=== PATIENT | female | born 1950 | race Caucasian/White ===

== ENCOUNTER 2016-12-26 08:53 | Outpatient (CLI) | payer MEDICARE, OTHER ==
[2016-12-26 19:51] LABS: BASOPHILS % (AUTO) 1.1 %; EOSINOPHILS # (AUTO) 0.2 10^3/uL (0.0-0.7); EOSINOPHILS % (AUTO) 4.7 %; HCT - HEMATOCRIT 39.7 % (37.0-47.0); HGB - HEMOGLOBIN 13.3 g/dL (12.0-16.0); LYMPHOCYTES # (AUTO) 1.6 10^3/uL (1.5-3.5); LYMPHOCYTES % (AUTO) 34.9 %; MEAN CORPUSCULAR HEMOGLOBIN 30.6 pg (27.0-31.0); MEAN CORPUSCULAR HGB CONC 33.5 g/dL (32.0-36.0); MEAN CORPUSCULAR VOLUME 91.2 fL (81.0-99.0); MEAN PLATELET VOLUME 8.9 fL (7.9-10.8); MONOCYTES # (AUTO) 0.4 10^3/uL (0.0-1.0); MONOCYTES % (AUTO) 8.2 %; NEUTROPHILS # (AUTO) 2.3 10^3/uL (1.5-6.6); NEUTROPHILS % (AUTO) 51.1 %; NUCLEATED RED BLOOD CELLS AUTO 0.3 /100WBC; RED BLOOD COUNT 4.35 10^6/uL (4.20-5.40); RED CELL DISTRIBUTION WIDTH 12.8 % (12.0-15.0); UNCORRECTED WHITE BLOOD COUNT 4.6 x10^3/uL; WHITE BLOOD COUNT 4.6 x10^3/uL (4.8-10.8)
[2016-12-26 19:58] LABS: ALBUMIN/GLOBULIN RATIO 1.3 (1.0-2.2); BILIRUBIN,TOTAL 0.4 mg/dL (0.2-1.0); CALCIUM 9.5 mg/dL (8.5-10.3); CREATININE 0.6 mg/dL (0.4-1.0); POTASSIUM 3.6 mmol/L (3.5-5.0); TOTAL PROTEIN 7.5 g/dL (6.7-8.2)
== END 2016-12-26 08:54 | disposition home or self-care (01) ==
LOC: LAB.R 08:53
PROVIDERS: ATTEND Physician Assistant Medical
DX: M81.0 Age-related osteoporosis without current pathological fracture (principal); I10 Essential (primary) hypertension; Z79.899 Other long term (current) drug therapy
CPT/HCPCS: 80053; 82306; 84443; 85025

== ENCOUNTER 2017-01-20 13:26 | Outpatient (CLI) | payer MEDICARE, OTHER ==
--- NOTE | 2017-01-21 18:29 | Mammography Report ---
DIGITAL SCREENING MAMMOGRAM: 01/20/2017 CLINICAL INDICATION: A 66-year-old for screening. COMPARISON: 10/2014, 10/2012, 07/2010. TECHNIQUE: Routine CC and MLO projections were obtained of the breasts. The breasts demonstrate scattered fibroglandular densities bilaterally. Coarse and punctate, typical ly benign calcifications are present. Intramammary lymph nodes are stable. No suspicious masses, cl ustered microcalcifications, or regions of architectural distortion are identified. IMPRESSION: BENIGN FINDINGS. RECOMMENDATION: ROUTINE ANNUAL SCREENING UNLESS OTHERWISE CLINICALLY INDICATED. BIRADS CATEGORY: 2, BENIGN FINDINGS. STANDARD QUALIFYING STATEMENTS 1. This examination was reviewed with the aid of Computed-Aided Detection (CAD). 2. A negative or benign imaging report should not delay biopsy if clinically suspicious findings are present. Consider surgical consultation if warranted. More than 5% of cancers are not identified b y imaging. 3. Dense breasts may obscure an underlying neoplasm. JOB #: [id number] EXT JOB #:[id number]
== END 2017-01-20 13:27 | disposition home or self-care (01) ==
LOC: DI 13:26
PROVIDERS: ATTEND Physician Assistant Medical
DX: Z12.31 Encounter for screening mammogram for malignant neoplasm of breast (principal)
CPT/HCPCS: 77067

== ENCOUNTER 2018-01-05 08:10 | Outpatient (CLI) | payer MEDICARE, OTHER ==
[2018-01-05 14:03] LABS: BASOPHILS # (AUTO) 0.1 10^3/uL (0.0-0.1); BASOPHILS % (AUTO) 1.3 %; EOSINOPHILS # (AUTO) 0.3 10^3/uL (0.0-0.7); HGB - HEMOGLOBIN 13.5 g/dL (12.0-16.0); LYMPHOCYTES # (AUTO) 1.5 10^3/uL (1.5-3.5); LYMPHOCYTES % (AUTO) 35.3 %; MEAN CORPUSCULAR HEMOGLOBIN 30.6 pg (27.0-31.0); MEAN CORPUSCULAR HGB CONC 34.4 g/dL (32.0-36.0); MEAN PLATELET VOLUME 8.9 fL (7.9-10.8); MONOCYTES # (AUTO) 0.4 10^3/uL (0.0-1.0); MONOCYTES % (AUTO) 8.4 %; NEUTROPHILS # (AUTO) 2.1 10^3/uL (1.5-6.6); PLT - PLATELET COUNT 237 10^3/uL (130-450); WHITE BLOOD COUNT 4.3 x10^3/uL (4.8-10.8)
[2018-01-05 14:13] LABS: ALBUMIN 4.1 g/dL (3.2-5.5); ALBUMIN/GLOBULIN RATIO 1.2 (1.0-2.2); BILIRUBIN,TOTAL 0.7 mg/dL (0.2-1.0); CALCIUM 9.4 mg/dL (8.5-10.3); CREATININE 0.5 mg/dL (0.4-1.0); TOTAL PROTEIN 7.5 g/dL (6.7-8.2)
== END 2018-01-05 08:11 | disposition home or self-care (01) ==
LOC: LAB.R 08:10
PROVIDERS: ATTEND Physician Assistant Medical
DX: M81.0 Age-related osteoporosis without current pathological fracture (principal); I10 Essential (primary) hypertension; Z79.899 Other long term (current) drug therapy
CPT/HCPCS: 80053; 82306; 84443; 85025

== ENCOUNTER 2018-01-26 08:22 | Outpatient (CLI) | payer MEDICARE, OTHER ==
--- NOTE | 2018-01-26 09:59 | DEXA Report ---
Reason: OSTEOPOROSIS, CURRENT MED USE Procedure Date: 01/26/2018 Accession Number: [id number] / [id number] Procedure: DEX - Dexa Spine and/or Hip CPT Code: FULL RESULT: EXAM: Dexa Spine and/or Hip DATE: 01/26/2018 8:43 AM CLINICAL HISTORY: OSTEOPOROSIS, CURRENT MED USE TECHNIQUE: Dual energy x-ray absorptiometry (DXA) was performed on a [employer] System. Regions measured are the AP Spine, femoral neck, and if needed forearm. COMPARISON: 01/04/2016 In accordance with the International Society for Clinical Densitometry (ISCD) guidelines, data from previous exams may be reanalyzed using current recommendations and techniques. This is done to allow a more accurate basis for comparison with the current study. FINDINGS: The data for the lumbar spine is as follows: BMD (g/cm/cm) T-SCORE Z-SCORE REGION L1 0.904 -1.9 -0.1 L2 1.030 -1.4 0.3 L3 1.034 -1.4 0.4 L4 0.997 -1.7 0.1 TOTAL 0.992 -1.6 0.2 NOTE: All evaluable vertebrae are used for classification The data for the hip is as follows: BMD (g/cm/cm) T-SCORE Z-SCORE REGION Neck 0.675 -2.6 -0.9 TOTAL 0.703 -2.4 -0.9 NOTE: The femoral neck or total proximal femur, whichever is lowest, is used for classification. DXA RESULTS SUMMARY: Spine SCAN DATE AGE BMD CHANGE VS CHANGE VS PREVIOUS PREVIOUS % 01[age]26/2018 [age] 0[age]992 0.043* 4.5* 01/04/2016 [age] 0[age]949 * Denotes significant change at the 95% confidence level. Denotes dissimilar scan types or analysis methods. DXA RESULTS SUMMARY: Hip SCAN DATE AGE BMD CHANGE VS CHANGE VS PREVIOUS PREVIOUS % 01[age]26/2018 67.9 0.703 -0.023 -3.2 01/04/2016 [age] 0.726 * Denotes significant change at the 95% confidence level. Denotes dissimilar scan types or analysis methods. IMPRESSION: THE WHO CLASSIFICATION BASED ON THE INTERNATIONAL REFERENCE STANDARD IS OSTEOPOROSIS. THE FRACTURE RISK IS HIGH. RECOMMENDATION: Patients with diagnosis of osteoporosis or osteopenia should have regular bone mineral density assessment. For those eligible for Medicare, routine testing is allowed once every 2 years. Testing frequency can be increased for patients who have rapidly progressing disease or for those who are receiving medical therapy to restore bone mass. COMMENT: World Health Organization (WHO) definitions for osteoporosis and osteopenia: NORMAL BMD: T-score at -1.0 or higher, fracture risk is low OSTEOPENIA BMD: T-score between -1.0 and -2.5, fracture risk is increased. OSTEOPOROSIS BMD: T-score at -2.5 or lower, fracture risk is high. National Osteoporosis Foundation recommends: 1. Obtain adequate dietary calcium (at least 1200 mg per day) and vitamin D (400-800 international units per day). 2. Participate, as appropriate, in regular weightbearing and muscle-strengthening exercise. 3. Avoid tobacco use and reduce alcohol and caffeine intake. 4. For more detailed information see the website at www.NOF.org.
== END 2018-01-26 08:23 | disposition home or self-care (01) ==
LOC: DI 08:22
PROVIDERS: ATTEND Physician Assistant Medical
DX: M81.0 Age-related osteoporosis without current pathological fracture (principal); Z79.899 Other long term (current) drug therapy
CPT/HCPCS: 77080

== ENCOUNTER 2018-12-09 09:49 | Outpatient (CLI) | payer MEDICARE, OTHER ==
[2018-12-09 10:10] LABS: BASOPHILS % (AUTO) 0.9 %; EOSINOPHILS # (AUTO) 0.2 10^3/uL (0.0-0.7); EOSINOPHILS % (AUTO) 3.6 %; HGB - HEMOGLOBIN 12.6 g/dL (12.0-16.0); LYMPHOCYTES # (AUTO) 1.8 10^3/uL (1.5-3.5); LYMPHOCYTES % (AUTO) 38.8 %; MEAN CORPUSCULAR HEMOGLOBIN 30.6 pg (27.0-31.0); MEAN CORPUSCULAR HGB CONC 33.3 g/dL (32.0-36.0); MEAN CORPUSCULAR VOLUME 91.7 fL (81.0-99.0); MEAN PLATELET VOLUME 9.9 fL (7.9-10.8); MONOCYTES # (AUTO) 0.5 10^3/uL (0.0-1.0); MONOCYTES % (AUTO) 9.8 %; NEUTROPHILS # (AUTO) 2.2 10^3/uL (1.5-6.6); NEUTROPHILS % (AUTO) 46.7 %; PLT - PLATELET COUNT 218 10^3/uL (130-450); RED BLOOD COUNT 4.12 10^6/uL (4.20-5.40); RED CELL DISTRIBUTION WIDTH 12.9 % (12.0-15.0); WHITE BLOOD COUNT 4.7 x10^3/uL (4.8-10.8)
[2018-12-09 10:42] LABS: ALBUMIN 4.1 g/dL (3.2-5.5); ALBUMIN/GLOBULIN RATIO 1.2 (1.0-2.2); BILIRUBIN,TOTAL 0.6 mg/dL (0.2-1.0); CALCIUM 9.7 mg/dL (8.5-10.3); CREATININE 0.7 mg/dL (0.4-1.0); TOTAL PROTEIN 7.5 g/dL (6.7-8.2)
[2018-12-09 11:01] LABS: THYROID STIMULATING HORMONE 1.07 uIU/mL (0.34-5.60)
[2018-12-09 11:03] LABS: FREE T4 (FREE THYROXINE) 0.94 ng/dL (0.58-1.64)
== END 2018-12-09 09:50 | disposition home or self-care (01) ==
LOC: LAB 09:49
PROVIDERS: ATTEND Family Medicine
DX: J45.909 Unspecified asthma, uncomplicated (principal); I10 Essential (primary) hypertension; L71.9 Rosacea, unspecified
CPT/HCPCS: 36415; 80053; 84439; 84443; 84481; 85025

== ENCOUNTER 2019-01-22 09:51 | Emergency (ER) | payer MEDICARE, OTHER ==
--- NOTE | 2019-01-22 11:50 | XRAY Report ---
Reason: unable to bear weight on L leg, or straighten knee Procedure Date: 01/22/2019 Accession Number: [id number] / [id number] Procedure: XR - Knee 4 View LT CPT Code: FULL RESULT: EXAM: LEFT KNEE RADIOGRAPHY EXAM DATE: 01/22/2019 11:21 AM. CLINICAL HISTORY: Unable to bear weight on L leg, or straighten knee. COMPARISON: None. TECHNIQUE: 4 views. FINDINGS: Bones: Normal. No fractures or bone lesions. Joints: Mild spurring along medial and lateral tibial plateau. No effusion. No subluxations. Soft Tissues: Normal. No soft tissue swelling. IMPRESSION: 1. Mild degenerative changes. 2. No left knee joint effusion or fracture evident. RADIA
--- NOTE | 2019-01-22 11:58 | ED Physician Documentation ---
PD HPI LOWER EXT INJURY - Stated complaint Stated Complaint: LT KNEE PX - Chief complaint Chief Complaint: Ext Problem - History obtained from History obtained from: Patient - History of Present Illness PD HPI LOW EXT INJURY LOCATION: Left, Knee Type of injury: Other (patient was sitting with leg under her butt and then when she went to get up felt she couldn't straighten it out) Where injury occurred: Home Timing - onset: How many days ago (2) Timing - duration: Days (2) Timing - details: Abrupt onset Improved by: Rest. No: Ice, Immobilization, Dressing, Meds Worsened by: Moving, Other (extending the knee) Associated symptoms: No: Weakness, Numbness, Tingling, Swelling, Discolored Contributing factors: No: Anticoagulated, Prior ortho surgery, Prosthetic joint, Work related Similar symptoms before: Has not had sx before Recently seen: Not recently seen - Treatment prior to arrival Treatment prior to arrival: none Review of Systems Ten Systems: 10 systems reviewed and negative Constitutional: denies: Fever Cardiac: reports: Reviewed and negative Respiratory: reports: Reviewed and negative Skin: reports: Reviewed and negative Musculoskeletal: reports: Joint pain, Pain with weight bearing. denies: Extremity pain, Extremity swelling, Joint swelling Neurologic: reports: Reviewed and negative. denies: Generalized weakness, Focal weakness, Numbness Immunocompromised: reports: Reviewed and negative PD PAST MEDICAL HISTORY - Past Medical History Past Medical History: Yes Cardiovascular: Hypertension Respiratory: Asthma Endocrine/Autoimmune: None GI: None : None HEENT: None Psych: None Musculoskeletal: None Derm: Rosacea - Present Medications Home Medications: Ambulatory Orders Medication Instructions Recorded Confirmed Aspirin [Adult Low Dose Aspirin EC] 81 mg PO DAILY 07/05/15 07/05/15 Calcium Carbonate/Vitamin D3 1 each PO DAILY 07/05/15 07/05/15 [Calcium 600 + Vit D3 800 Tab] Doxycycline Hyclate 50 mg PO DAILY 07/05/15 07/05/15 Lisinopril 10 mg PO DAILY 07/05/15 07/05/15 Multivit with Calcium,Iron,Min 1 cap PO DAILY 07/05/15 07/05/15 [Multiple Vitamins For Women] hydroCHLOROthiazide 12.5 mg PO DAILY 07/05/15 07/05/15 [Hydrochlorothiazide] - Allergies Allergies/Adverse Reactions: Allergies Allergy/AdvReac Type Severity Reaction Status Date / Time Sulfa (Sulfonamide Allergy Rash Verified 10/11/19 09:58 Antibiotics) - Social History Does the pt smoke?: No Smoking Status: Never smoker PD ED PE NORMAL - Vitals Vital signs reviewed: Yes - General General: Alert and oriented X 3, No acute distress, Well developed/nourished - HEENT HEENT: Atraumatic, Pharynx benign - Neck Neck: No JVD - Cardiac Cardiac: RRR - Respiratory Respiratory: No respiratory distress - Abdomen Abdomen: Non distended - Female Female : Deferred - Rectal Rectal: Deferred - Derm Derm: Normal color, Warm and dry, No rash - Extremities Extremities: No deformity, No tenderness to palpate, Normal ROM s pain, No marcie a, No calf tenderness / cord - Neuro Neuro: Alert and oriented X 3 Eye Opening: Spontaneous Motor: Obeys Commands Verbal: Oriented GCS Score: 15 - Psych Psych: Normal mood, Normal affect PD ED PE EXPANDED - Extremities Extremities: Limited ROM (difficulty with extension, pain with kerry's test ), Swelling (mild swelling to L medial knee). No: Joint effusion, Ligament laxity Results - Vitals Vitals: Oxygen O2 Source Room air - Rads (name of study) L knee xray Radiology: Final report received, EMP read contemporaneously (negative ), See rad report PD MEDICAL DECISION MAKING - ED course Complexity details: reviewed results, re-evaluated patient, considered differential, d/w patient, d/w family ED course: ddx- knee sprain, meniscal injury, ligamentous injury, knee fx 68 y/o F with atraumatic L knee pain after sitting on her leg a few days ago and is having difficulty with ambulation. pain is medial and consistent with a suspected meniscal injury. Benign exam otherwise, negative xray. She has analgesics at home and is using a cane. Attempted a knee immobilzer here but felt better with crutches and an gurpreet wrap. pt stable for discharge and outpt f/u Departure - Departure Disposition: 01 Home, Self Care Clinical Impression: Left knee sprain Qualifiers: Encounter type: initial encounter Involved ligament of knee: other ligament Qualified Code(s): S83.8X2A - Sprain of other specified parts of left knee, initial encounter Condition: Stable Record reviewed to determine appropriate education?: Yes Instructions: ED Meniscal Injury Knee Poss Follow-Up: Kenney Travis MD [Primary Care Provider] - Within 1 week (if symptoms persist ) Comments: Your xray today was negative. You likely have a knee sprain or a meniscal injury. Use the knee immobilizer as needed for ambulation. If your knee discomfort improves you can discontinue it. You should follow up with your doctor for outpatient evaluation and to obtain further imaging such as an MRI if your symptoms continue. Discharge Date/Time: 01/22/19 13:20
[2019-01-22 13:13] VITALS: BP 139/72
== END 2019-01-22 13:20 | disposition home or self-care (01) ==
LOC: ED 09:51
DX: S83.8X2A Sprain of other specified parts of left knee, initial encounter (principal); X58.XXXA Exposure to other specified factors, initial encounter; Y93.89 Activity, other specified; Y92.009 Unspecified place in unspecified non-institutional (private) residence as the place of occurrence of the external cause; I10 Essential (primary) hypertension; Z79.82 Long term (current) use of aspirin
CPT/HCPCS: 99282; 99283

== ENCOUNTER 2019-03-10 16:18 | Outpatient (CLI) | payer MEDICARE, OTHER ==
--- NOTE | 2019-03-15 11:40 | Mammography Report ---
Reason: ROUTINE MAMMO Procedure Date: 03/10/2019 Accession Number: [id number] / [id number] Procedure: LINDA - Screening Mammo w/Martínez CPT Code: Final Report FULL RESULT: EXAM: Screening Mammo w/Martínez DATE: 03/10/2019 4:58 PM CLINICAL HISTORY: The patient is an asymptomatic 69-year-old female presenting with a second-degree family history of breast cancer. TECHNIQUE: (B) - Bilateral CC and MLO views were obtained. COMPARISON: None 01/20/2017, 11/02/2014 and 10/22/2012 PARENCHYMAL PATTERN: (A) - The breasts demonstrate scattered fibroglandular densities bilaterally. FINDINGS: Bilateral waxing and waning isodense nodularity. Few punctate scattered and loosely-grouped calcifications again noted. There are no suspicious masses, calcifications, or areas of distortion. IMPRESSION: Benign findings. BI-RADS category 2. RECOMMENDATION: (ANNUAL) - Recommend routine annual screening mammography. BI-RADS CATEGORY: (2) - Benign Findings. STANDARD QUALIFYING STATEMENTS: 1. This examination was not reviewed with the aid of Computer-Aided Detection (CAD). 2. A negative or benign imaging report should not preclude biopsy if clinically suspicious findings are present. 3. Dense breasts may obscure an underlying neoplasm. 4. This examination was reviewed the aid of 3D breast imaging (tomosynthesis).
== END 2019-03-10 16:19 | disposition home or self-care (01) ==
LOC: DI 16:18
PROVIDERS: ATTEND Family Medicine
DX: Z12.31 Encounter for screening mammogram for malignant neoplasm of breast (principal); Z80.3 Family history of malignant neoplasm of breast
CPT/HCPCS: 77063; 77067

== ENCOUNTER 2020-01-11 13:45 | Outpatient (CLI) | payer MEDICARE, OTHER ==
[2020-01-11] MEDS ORDERED: IOVERSOL 320 100 ML VIAL IVP ONE ×2 (14:00→15:37)
[2020-01-11] MEDS ORDERED: IOVERSOL 320 50 ML VIAL ONE (14:00)
[2020-01-11 14:22] LABS: CALCIUM 9.5 mg/dL (8.5-10.3); CREATININE 0.7 mg/dL (0.4-1.0)
[2020-01-11] MEDS ORDERED: IOVERSOL 320 50 ML VIAL PO ONE (15:37)
--- NOTE | 2020-01-11 15:51 | CT Report ---
PROCEDURE: Abdomen/Pelvis W INDICATIONS: BRIGHT RED BLOOD PER RECTUM CONTRAST: IV CONTRAST: Optiray 320 ml: 100 PO CONTRAST: Optiray 320 ml50 TECHNIQUE: After the administration of intravenous contrast, 5 mm thick sections acquired from the diaphragms to the symphysis. 5 mm thick coronal and sagittal reformats were acquired. For radiation dose reducti on, the following was used: automated exposure control, adjustment of mA and/or kV according to ammy ent size. COMPARISON: None. FINDINGS: Image quality: Excellent. ABDOMEN: Lung bases: Lung bases are clear. Heart size is normal. Solid organs: Liver and spleen are normal in size and enhancement. Gallbladder this normal. Biliar y system is non dilated. Pancreas enhances normally. No adrenal nodules. Kidneys demonstrate brice l size and enhancement, without hydronephrosis. Peritoneum and bowel: There is focal asymmetric/eccentric rectal wall thickening on the right just a emely the anal verge (series 3 image 39). In the splenic flexure and distal transverse colon there is a fairly long segment of circumferential colonic wall thickening and submucosal edema with mucosal hy perenhancement and subtle pericolonic fat stranding along with some engorged vasa recta. Scattered si gmoid colonic diverticula without evidence of diverticulitis. Remaining bowel is normal in appearance , including the appendix. Large volume of formed stool throughout the colon. Nodes and vessels: No retroperitoneal or mesenteric adenopathy by size criteria. Aorta and inferior vena cava are normal in size. PELVIS: Genitourinary: Bladder wall thickness is normal. Miscellaneous: No inguinal hernias or adenopathy. Bones: No suspicious bony lesions. No vertebral body compression fractures. IMPRESSION: 1. Colonic wall thickening and inflammatory changes involving the distal transverse colon and splenic flexure. Findings are consistent with colitis, with infectious, inflammatory, and ischemic different ial considerations. 2. Questionable focus of asymmetric/eccentric distal rectal wall thickening just above the anal verge on the right. 3. Both of these findings represent potential sources of rectal bleeding. Reviewed by: Bradley Chavez MD on 01/11/2020 3:49 PM PDT Approved by: Bradley Chavez MD on 01/11/2020 3:49 PM PDT Station ID: [id number]
== END 2020-01-11 13:46 | disposition home or self-care (01) ==
LOC: DI 13:45
PROVIDERS: ATTEND Family Medicine
DX: K62.5 Hemorrhage of anus and rectum (principal)
CPT/HCPCS: 36415; 74177; 80048; Q9967

== ENCOUNTER 2020-01-14 07:00 | Outpatient (CLI) | payer MEDICARE, OTHER | END 2020-01-14 23:59 | disposition home or self-care (01) | LOC: LAB.R 07:00 | PROVIDERS: ATTEND Surgery | DX: K62.5 Hemorrhage of anus and rectum (principal) | CPT/HCPCS: 81599; 87045; 87046; 87177; 87209; 87427; 87493 ==

== ENCOUNTER 2020-02-09 07:30 | Day surgery (SDC) | payer MEDICARE, OTHER ==
[2020-02-09] MEDS ORDERED: fentaNYL 250 MCG/5 ML VIAL IVP ONE (07:31)
[2020-02-09] MEDS ORDERED: MIDAZOLAM 2 MG/2 ML VIAL IVP ONE (07:31)
[2020-02-09] MEDS ORDERED: LACTATED RINGERS 1,000 ML IV ONE ×2 (08:01→09:01)
[2020-02-09 09:24] VITALS: BP 97/55
== END 2020-02-09 07:31 | disposition home or self-care (01) ==
LOC: SDS 07:30
PROVIDERS: ATTEND Surgery
PROC: 0DBL8ZZ Excision of Transverse Colon, Via Natural or Artificial Opening Endoscopic (ICD-10-PCS; principal; 2020-02-09 08:30)
DX: Z12.11 Encounter for screening for malignant neoplasm of colon (principal); D12.3 Benign neoplasm of transverse colon; K57.30 Diverticulosis of large intestine without perforation or abscess without bleeding
CPT/HCPCS: 45380; J3010; J7120

== ENCOUNTER 2020-06-27 09:55 | Outpatient (CLI) | payer MEDICARE, OTHER ==
--- NOTE | 2020-06-27 17:50 | DEXA Report ---
PROCEDURE: Dexa Spine and/or Hip INDICATIONS: OSTEOPOROSIS TECHNIQUE: Dual energy x-ray absorptiometry (DXA) was performed on a [employer] System. Regions measur ed are the AP Spine, femoral neck, and if needed forearm. COMPARISON: 01/26/2018 and 01/04/2016. FINDINGS: Lumbar Spine: Bone Mineral Density 0.990 g/cm/cm,T score -1.6, osteopenia Left Hip: Bone Mineral Density 0.696 g/cm/cm,T score -2.5, osteoporosis Left Femoral Neck: Bone Mineral Density 0.665 g/cm/cm, T score -2.7, osteoporosis (T score greater or equal to -1.0: NORMAL) (T score from -1.1 to -2.4: OSTEOPENIA) (T score less than or equal to -2.5 to: OSTEOPOROSIS) Impression: Osteoporosis. Bone mineral density has decreased 1% compared to 01/26/2018. Patients with diagnosis of osteoporosis or osteopenia should have regular bone mineral density assess ment. For those eligible for Medicare, routine testing is allowed once every 2 years. Testing frequ ency can be increased for patients who have rapidly progressing disease or for those who are receivin g medical therapy to restore bone mass. Reviewed by: Abimbola Ruiz MD, PhD on 06/27/2020 5:48 PM PDT Approved by: Abimbola Ruiz MD, PhD on 06/27/2020 5:48 PM PDT Station ID: [id number]
== END 2020-06-27 09:56 | disposition home or self-care (01) ==
LOC: DI 09:55
PROVIDERS: ATTEND Family Medicine
DX: M81.0 Age-related osteoporosis without current pathological fracture (principal)

== ENCOUNTER 2020-11-16 08:53 | Outpatient (CLI) | payer MEDICARE, OTHER ==
--- NOTE | 2020-11-17 13:11 | Mammography Report ---
BILATERAL DIGITAL SCREENING MAMMOGRAM 3D/2D: 11/16/2020 CLINICAL: Routine screening. Comparison is made to exams dated: 03/10/2019 mammogram, 01/20/2017 mammogram, 11/02/2014 mammogram, a nd 10/22/2012 mammogram - [facility]. There are scattered fibroglandular elements i n both breasts. No significant masses, calcifications, or other findings are seen in either breast. There has been no significant interval change. IMPRESSION: NEGATIVE There is no mammographic evidence of malignancy. A 1 year screening mammogram is recommended. This exam was interpreted at Station ID: [id number]. NOTE: For mammograms, a report in lay terms will be sent to the patient. Approximately 15% of breast malignancies will not be visualized mammographically. In the management of a palpable breast mass, a negative mammogram must not discourage biopsy of a clinically suspicious lesion. Electronically Signed By: Miguelito Schmidt M.D. [facility] [place]:11/16/2020 09:49:57 ACR BI-RADS Category 1: Negative 3341F PARENCHYMAL PATTERN: (A) - The breast(s) demonstrate(s) scattered fibroglandular densities. BI-RADS CATEGORY: (1) - 1 RECOMMENDATION: (ANNUAL) - Recommend routine annual screening mammography. [id number] 1 year screening LATERALITY: (B)
== END 2020-11-16 08:54 | disposition home or self-care (01) ==
LOC: DI 08:53
DX: Z12.31 Encounter for screening mammogram for malignant neoplasm of breast (principal)

== ENCOUNTER 2021-08-14 08:24 | Outpatient (CLI) | payer MEDICARE, OTHER ==
--- NOTE | 2021-08-14 09:18 | DEXA Report ---
PROCEDURE: Dexa Spine and/or Hip INDICATIONS: OSTEOPOROSIS TECHNIQUE: Dual energy x-ray absorptiometry (DXA) was performed on a [employer] System. Regions measur ed are the AP Spine, femoral neck, and if needed forearm. COMPARISON: June 27, 2020. FINDINGS: Lumbar Spine: Bone Mineral Density 1.050 g/cm/cm,T score -1.1, osteopenia; 6.1% change from previous Left Hip: Bone Mineral Density 0.736 g/cm/cm,T score -2.2, osteopenia; 5.7% change from previous Left Femoral Neck: Bone Mineral Density 0.673 g/cm/cm, T score -2.6, osteoporosis (T score greater or equal to -1.0: NORMAL) (T score from -1.1 to -2.4: OSTEOPENIA) (T score less than or equal to -2.5 to: OSTEOPOROSIS) Impression: Bone mineral density as detailed above. Patients with diagnosis of osteoporosis or osteopenia should have regular bone mineral density assess ment. For those eligible for Medicare, routine testing is allowed once every 2 years. Testing frequ ency can be increased for patients who have rapidly progressing disease or for those who are receivin g medical therapy to restore bone mass. Reviewed by: Grant Dennis MD on 08/14/2021 9:17 AM PDT Approved by: Grant Dennis MD on 08/14/2021 9:17 AM PDT Station ID: [id number]
== END 2021-08-14 08:25 | disposition home or self-care (01) ==
LOC: DI 08:24
PROVIDERS: ATTEND Family Medicine
DX: M81.0 Age-related osteoporosis without current pathological fracture (principal); Z51.81 Encounter for therapeutic drug level monitoring; Z79.899 Other long term (current) drug therapy

== ENCOUNTER 2022-08-15 10:42 | Outpatient (CLI) | payer MEDICARE, OTHER ==
--- NOTE | 2022-08-15 18:21 | DEXA Report ---
PROCEDURE: Dexa Spine and/or Hip INDICATIONS: OSTEOPOROSIS TECHNIQUE: Dual energy x-ray absorptiometry (DXA) was performed on a [employer] System. Regions measur ed are the AP Spine, femoral neck, and if needed forearm. COMPARISON: None. FINDINGS: Lumbar Spine: Bone Mineral Density 1.003 g/cm/cm,T score -1.5, osteopenia Left Femoral Neck: Bone Mineral Density 0.687 g/cm/cm, T score -2.5, osteoporosis Left Hip: Bone Mineral Density 0.736 g/cm/cm,T score -2.2, osteopenia (T score greater or equal to -1.0: NORMAL) (T score from -1.1 to -2.4: OSTEOPENIA) (T score less than or equal to -2.5 to: OSTEOPOROSIS) Impression: Osteoporosis Patients with diagnosis of osteoporosis or osteopenia should have regular bone mineral density assess ment. For those eligible for Medicare, routine testing is allowed once every 2 years. Testing frequ ency can be increased for patients who have rapidly progressing disease or for those who are receivin g medical therapy to restore bone mass. Reviewed by: Phillip Stokes MD on 08/15/2022 5:20 PM ARIEL Approved by: Phillip Stokes MD on 08/15/2022 5:20 PM AKDT Station ID: [id number]
== END 2022-08-15 10:43 | disposition home or self-care (01) ==
LOC: DI 10:42
PROVIDERS: ATTEND Family Medicine
DX: M81.0 Age-related osteoporosis without current pathological fracture (principal)

== ENCOUNTER 2022-08-15 10:44 | Outpatient (CLI) | payer MEDICARE, OTHER ==
--- NOTE | 2022-08-16 10:18 | Mammography Report ---
BILATERAL DIGITAL SCREENING MAMMOGRAM 3D/2D: 08/15/2022 CLINICAL: Routine screening. Comparison is made to exams dated: 11/16/2020 mammogram, 01/20/2017 mammogram, 03/10/2019 mammogram, an d 11/02/2014 mammogram - [facility]. There are scattered areas of fibroglandular density in both breasts (category b / 25%-50% glandular t issue). There is a round equal density focal asymmetry with an obscured and circumscribed margin in the left breast central to the nipple posterior depth. This is increased in size. No other significant masses, calcifications, or other findings are seen in either breast. IMPRESSION: INCOMPLETE: NEEDS ADDITIONAL IMAGING EVALUATION The round equal density focal asymmetry in the left breast is indeterminate. Additional views with p ossible ultrasound are recommended. Based on the Tyrer Cuzick model (a risk assessment model) the patients lifetime risk is 7.2% and her 10 year risk is 5.9%. According to the ACR, ACS, and NCCN guidelines, an annual breast MRI exam brandyn g with mammogram is recommended if the patients lifetime risk is 20% or greater. This exam was interpreted at Station ID: [id number]. NOTE: For mammograms, a report in lay terms will be sent to the patient. Approximately 15% of breast malignancies will not be visualized mammographically. In the management of a palpable breast mass, a negative mammogram must not discourage biopsy of a clinically suspicious lesion. Electronically Signed By: Brinda addison/:08/15/2022 15:56:25 letter sent: No_Letter ACR BI-RADS Category 0: Incomplete 3340F PARENCHYMAL PATTERN: (A) - The breast(s) demonstrate(s) scattered fibroglandular densities. BI-RADS CATEGORY: (0) - 0 Mammo and [place] [id number] Immediate follow-up LATERALITY: (B)
== END 2022-08-15 10:45 | disposition home or self-care (01) ==
LOC: DI 10:44
DX: Z12.31 Encounter for screening mammogram for malignant neoplasm of breast (principal); R92.8 Other abnormal and inconclusive findings on diagnostic imaging of breast

== ENCOUNTER 2022-08-28 11:36 | Outpatient (CLI) | payer MEDICARE, OTHER ==
[2022-08-28 11:50] LABS: BASOPHILS # (AUTO) 0.1 10^3/uL (0.0-0.1); BASOPHILS % (AUTO) 0.9 %; EOSINOPHILS # (AUTO) 0.1 10^3/uL (0.0-0.7); EOSINOPHILS % (AUTO) 2.5 %; HCT - HEMATOCRIT 40.5 % (37.0-47.0); HGB - HEMOGLOBIN 13.4 g/dL (12.0-16.0); LYMPHOCYTES # (AUTO) 1.9 10^3/uL (1.5-3.5); LYMPHOCYTES % (AUTO) 33.2 %; MEAN CORPUSCULAR HEMOGLOBIN 30.3 pg (27.0-31.0); MEAN CORPUSCULAR HGB CONC 33.1 g/dL (32.0-36.0); MEAN CORPUSCULAR VOLUME 91.6 fL (81.0-99.0); MEAN PLATELET VOLUME 9.4 fL (7.9-10.8); MONOCYTES # (AUTO) 0.5 10^3/uL (0.0-1.0); MONOCYTES % (AUTO) 9.6 %; NEUTROPHILS % (AUTO) 53.6 %; PLT - PLATELET COUNT 272 10^3/uL (130-450); RED BLOOD COUNT 4.42 10^6/uL (4.20-5.40); WHITE BLOOD COUNT 5.6 x10^3/uL (4.8-10.8)
[2022-08-28 12:44] LABS: ALBUMIN 4.3 g/dL (3.2-5.5); ALBUMIN/GLOBULIN RATIO 1.3 (1.0-2.2); ALKALINE PHOSPHATASE 60 IU/L (42-121); ALT ALANINE AMINOTRANSFERASE 22 IU/L (10-60); AST ASPARTATE AMINOTRANSFERASE 23 IU/L (10-42); BILIRUBIN,TOTAL 0.6 mg/dL (0.2-1.0); BUN - BLOOD UREA NITROGEN 20 mg/dL (6-20); CALCIUM 9.8 mg/dL (8.5-10.3); CARBON DIOXIDE - CO2 30 mmol/L (21-32); CHLORIDE 102 mmol/L (101-111); CHOL/HDL RATIO 2.7 (<4.4); CHOLESTEROL 221 mg/dL; CREATININE 0.7 mg/dL (0.4-1.0); GFR - MDRD 82 (>89); GLUCOSE 106 mg/dL (70-100); HDL CHOLESTEROL 82 mg/dL; LDL CHOLESTEROL,CALCULATED 118 mg/dL; LDL/HDL RATIO 1.4 (<4.4); POTASSIUM 4.1 mmol/L (3.5-5.0); SODIUM 138 mmol/L (135-145); TOTAL PROTEIN 7.7 g/dL (6.7-8.2); TRIGLYCERIDES 104 mg/dL; VLDL CHOLESTEROL 21 mg/dL
[2022-08-28 12:48] LABS: THYROID STIMULATING HORMONE 1.18 uIU/mL (0.34-5.60)
== END 2022-08-28 11:37 | disposition home or self-care (01) ==
LOC: LAB 11:36
PROVIDERS: ATTEND Family Medicine
DX: I10 Essential (primary) hypertension (principal); Z13.220 Encounter for screening for lipoid disorders; Z13.29 Encounter for screening for other suspected endocrine disorder
CPT/HCPCS: 36415; 80053; 80061; 83721; 84443; 85025

== ENCOUNTER 2022-09-18 10:43 | Outpatient (CLI) | payer MEDICARE, OTHER ==
--- NOTE | 2022-09-19 10:53 | Mammography Report ---
UNILATERAL LEFT DIGITAL DIAGNOSTIC MAMMOGRAM 3D/2D WITH SPOT COMPRESSION: 09/18/2022 CLINICAL: Patient returns today to evaluate a focal asymmetry in the left breast. Comparison is made to exams dated: 08/15/2022 mammogram, 11/16/2020 mammogram, 03/10/2019 mammogram, 01/20/2017 mammogram, 11/02/2014 mammogram, and 10/22/2012 mammogram - [facility]. There are scattered areas of fibroglandular density in the left breast (category b / 25%-50% glandula r tissue). There is a 0.9 cm oval mass with a circumscribed margin in the left breast central to the nipple post erior depth. No other significant masses or calcifications are seen in the breast. Other small oval circumscibed masses are present, seen on prior. IMPRESSION: INCOMPLETE: NEEDS ADDITIONAL IMAGING EVALUATION The 0.9 cm oval mass in the left breast is indeterminate. An ultrasound is recommended. Based on the Tyrer Cuzick model (a risk assessment model) the patients lifetime risk is 7.2% and her 10 year risk is 5.9%. According to the ACR, ACS, and NCCN guidelines, an annual breast MRI exam brandyn g with mammogram is recommended if the patients lifetime risk is 20% or greater. This exam was interpreted at Station ID: [id number]. NOTE: For mammograms, a report in lay terms will be sent to the patient. Approximately 15% of breast malignancies will not be visualized mammographically. In the management of a palpable breast mass, a negative mammogram must not discourage biopsy of a clinically suspicious lesion. Electronically Signed By: Robel Nicole M.D. lc/:09/18/2022 12:15:53 ACR BI-RADS Category 0: Incomplete 3340F PARENCHYMAL PATTERN: (A) - The breast(s) demonstrate(s) scattered fibroglandular densities. BI-RADS CATEGORY: (0) - 0 Ultrasound [id number] Immediate follow-up LATERALITY: (B)
--- NOTE | 2022-09-19 10:54 | Ultrasound Report ---
LIMITED ULTRASOUND OF LEFT BREAST: 09/18/2022 CLINICAL: Patient returns today to evaluate a focal asymmetry in the left breast. Comparison is made to exams dated: 09/18/2022 mammogram, 08/15/2022 mammogram, 11/16/2020 mammogram, and 05/10/2018 mammogram - [facility]. Color flow ultrasound of the left breast retroareolar was performed. De La Paz scale images of the real- time examination were reviewed. There is a possible 0.9 cm x 0.4 cm x 0.7 cm complicated cyst in the left breast central to the nippl e middle depth. This correlates with mammography findings. IMPRESSION: PROBABLY BENIGN The possible 0.9 cm x 0.4 cm x 0.7 cm complicated cyst in the left breast is probably benign. Follow -up mammogram and ultrasound in 6 months is recommended. This exam was interpreted at Station ID: [id number]. Electronically Signed By: Robel Nicole M.D. lc/:09/18/2022 12:16:51 Ultrasound BI-RADS: 3 Probably benign BI-RADS CATEGORY: (3) - 3 Mammo and [place] [id number] 6 month follow-up LATERALITY: (B)
== END 2022-09-18 10:44 | disposition home or self-care (01) ==
LOC: DI 10:43
PROVIDERS: ATTEND Family Medicine
DX: N63.42 Unspecified lump in left breast, subareolar (principal)

== ENCOUNTER 2023-03-25 12:34 | Outpatient (CLI) | payer MEDICARE, OTHER ==
--- NOTE | 2023-03-26 12:23 | Mammography Report ---
UNILATERAL LEFT DIGITAL DIAGNOSTIC MAMMOGRAM 3D/2D: 03/25/2023 CLINICAL: Patient returns for a 6 month follow up of the left breast. Comparison is made to exams dated: 09/18/2022 mammogram, 08/15/2022 mammogram, 11/16/2020 mammogram, 03/10 mammogram, 01/20/2017 mammogram, and 11/02/2014 mammogram - [facility]. There are scattered areas of fibroglandular density in the left breast (category b / 25%-50% glandula r tissue). There is a 1.3 cm oval high density mass with a circumscribed margin in the left breast central to th e nipple posterior depth. This is seen in additional views. This is increased in size. No other significant masses or calcifications are seen in the breast. IMPRESSION: INCOMPLETE: NEEDS ADDITIONAL IMAGING EVALUATION The 1.3 cm oval high density mass in the left breast has increased in size. An ultrasound is recomme nded for further evaluation. This was performed immediately following this exam. Based on the Tyrer Cuzick model (a risk assessment model) the patients lifetime risk is 6.7% and her 10 year risk is 6.1%. According to the ACR, ACS, and NCCN guidelines, an annual breast MRI exam brandyn g with mammogram is recommended if the patients lifetime risk is 20% or greater. This exam was interpreted at Station ID: [id number]. NOTE: For mammograms, a report in lay terms will be sent to the patient. Approximately 15% of breast malignancies will not be visualized mammographically. In the management of a palpable breast mass, a negative mammogram must not discourage biopsy of a clinically suspicious lesion. Electronically Signed By: Brinda addison/:03/25/2023 13:15:15 ACR BI-RADS Category 0: Incomplete 3340F PARENCHYMAL PATTERN: (A) - The breast(s) demonstrate(s) scattered fibroglandular densities. BI-RADS CATEGORY: (0) - 0 Ultrasound [id number] Immediate follow-up LATERALITY: (B)
--- NOTE | 2023-03-26 12:23 | Ultrasound Report ---
LIMITED ULTRASOUND OF LEFT BREAST: 03/25/2023 CLINICAL: Short term follow up for the left breast. Comparison is made to exams dated: 09/18/2022 ultrasound, 09/18/2022 mammogram, and 08/15/2022 mammogram - [facility]. Color flow ultrasound of the left breast retroareolar was performed. De La Paz scale images of the real- time examination were reviewed. There is a 1.2 cm x 1.1 cm x 0.5 cm oval cyst in the left breast central to the nipple posterior dept h. This oval cyst is now anechoic. This abnormality is increased in size and correlates with mammog tim findings. Color flow imaging demonstrates that there is no vascularity present. IMPRESSION: BENIGN The 1.2 cm cyst in the left breast has increased in size, but has become simple in internal echotextu re and is benign. Return to annual mammogram screening schedule is recommended. Findings and recommendations were conveyed to the patient at time of exam. This exam was interpreted at Station ID: [id number]. Electronically Signed By: Brinda addison/:03/25/2023 13:37:50 Ultrasound BI-RADS: 2 Benign BI-RADS CATEGORY: (2) - 2 Mammogram [id number] return to screening LATERALITY: (B)
== END 2023-03-25 12:35 | disposition home or self-care (01) ==
LOC: DI 12:34
PROVIDERS: ATTEND Family Medicine
DX: N60.02 Solitary cyst of left breast (principal); R92.323 Mammographic fibroglandular density, bilateral breasts

== ENCOUNTER 2023-05-02 13:09 | Emergency (ER) | payer MEDICARE, OTHER ==
--- NOTE | 2023-05-02 14:00 | XRAY Report ---
PROCEDURE: Chest 1V INDICATIONS: Chest Pain TECHNIQUE: One view of the chest was acquired. COMPARISON: None. FINDINGS: Surgical changes and devices: None. Lungs and pleura: No pleural effusions or pneumothorax. Lungs are clear. Mediastinum: Mediastinal contours appear normal. Heart size is normal. Bones and chest wall: No suspicious bony lesions. Overlying soft tissues appear unremarkable. IMPRESSION: No acute cardiopulmonary process. Reviewed by: Jaguar Sol MD on 05/02/2023 1:59 PM [facility] Approved by: Jaguar Sol MD on 05/02/2023 1:59 PM [facility] Station ID: [id number]
--- NOTE | 2023-05-02 14:02 | ED Physician Documentation ---
PD HPI CHEST PAIN - Stated complaint Stated Complaint: CHEST PX - Chief complaint Chief Complaint: Cardiac - Additional information Additional information: 73-year-old female presents emergency department for about 1 week of chest pain. Patient says that about a week ago she is felt pain under her left breast that radiated to her back and she started to experience immediate belching and attributed this pain to indigestion. Since then she has been feeling bounding heart rate and more fatigued than normal today she has been feeling more symptoms of palpitations and flutter she describes and wanted to come to the emergency department for further evaluation to have this looked at by a provider. PD PAST MEDICAL HISTORY - Past Medical History Past Medical History: Yes Cardiovascular: Hypertension Respiratory: Asthma Endocrine/Autoimmune: None GI: None : None HEENT: None Psych: None Musculoskeletal: None Derm: Rosacea - Past Surgical History Past Surgical History: Yes General: Colonoscopy - Present Medications Home Medications: Ambulatory Orders Medication Instructions Recorded Confirmed Aspirin [Adult Low Dose Aspirin EC] 81 mg PO DAILY 07/05/15 07/05/15 Calcium Carbonate/Vitamin D3 1 each PO DAILY 07/05/15 07/05/15 [Calcium 600 + Vit D3 800 Tab] Doxycycline Hyclate 50 mg PO DAILY 07/05/15 07/05/15 Multivit with Calcium,Iron,Min 1 cap PO DAILY 07/05/15 07/05/15 [Multiple Vitamins For Women] hydroCHLOROthiazide 12.5 mg PO DAILY 07/05/15 07/05/15 [Hydrochlorothiazide] lisinopriL [Lisinopril] 10 mg PO DAILY 07/05/15 07/05/15 - Allergies Allergies/Adverse Reactions: Allergies Allergy/AdvReac Type Severity Reaction Status Date / Time Sulfa (Sulfonamide Allergy Rash Verified 05/02/23 13:22 Antibiotics) - Social History Does the pt smoke?: No Smoking Status: Never smoker Does the pt drink ETOH?: No Does the pt have substance abuse?: No - Immunizations Immunizations are current?: Yes PD ED PE NORMAL - Vitals Vital signs reviewed: Yes - General General: Alert and oriented X 3 - HEENT HEENT: Atraumatic - Neck Neck: No JVD - Cardiac Cardiac: RRR, No murmur, No gallop, Strong equal pulses - Respiratory Respiratory: No respiratory distress, Clear bilaterally - Abdomen Abdomen: Normal bowel sounds, Soft, Non tender - Derm Derm: Normal color, Warm and dry - Extremities Extremities: No edema, No calf tenderness / cord - Psych Psych: Normal mood Results - Vitals Vitals: Vital Signs - 24 hr 05/02/23 05/02/23 13:22 15:13 Temperature 36.8 C Heart Rate 100 72 Respiratory 16 18 Rate Blood Pressure 143/86 H 124/80 O2 Saturation 100 98 Oxygen O2 Source Room air - EKG (time done) 1331 EKG releavant findings:: EKG personally interpreted by author of this note. Relevant findings are: Rate: Rate (enter#) (87) Rhythm: NSR [place]: LAD Intervals: Normal [place] QRS: Normal Ischemia: Normal ST segments Computer interpretation: Agree with computer - Labs Labs: Laboratory Tests 05/02/23 05/02/23 14:04 14:04 WBC 6.2 RBC 4.48 Hgb 13.2 Hct 41.0 MCV 91.5 MCH 29.5 MCHC 32.2 RDW 12.3 Plt Count 257 MPV 9.8 Neut # (Auto) 3.9 Lymph # (Auto) 1.7 [place] # (Auto) 0.5 Eos # (Auto) 0.1 Baso # (Auto) 0.0 Absolute Nucleated RBC 0.00 Nucleated RBC % 0.0 Sodium 137 Potassium 3.6 Chloride 101 Carbon Dioxide 33 H Anion Gap 3.0 L BUN 25 H Creatinine 0.7 Estimated GFR (MDRD) 82 L Glucose 110 H Calcium 9.9 Total Bilirubin 0.3 AST 16 ALT 14 Alkaline Phosphatase 75 Troponin I High Sens 2.8 Total Protein 7.1 Albumin 4.2 Globulin 2.9 Albumin/Globulin Ratio 1.4 Lipase 28 - Rads (name of study) Chest x-ray Relevant Findings:: Final report received, EMP independent interpretation of test (No acute cardiopulmonary abnormalities) PD Medical Decision Making - ED course ED course: Exam without evidence of volume overload so doubt heart failure. EKG without signs of active ischemia. Given the timing of pain to ER presentation, single troponin was negative so doubt NSTEMI. Presentation not consistent with acute PE (Wells low risk 0),pneumothorax (not visualized on chest xr), thoracic aortic dissection, pericarditis, tamponade, pneumonia (no infectious symptoms, clear chest xr), myocarditis (no recent illness, neg trop). HEART score:3 so discharge patient home with PCP follow up. Departure - Departure Disposition: Home, Self Care Clinical Impression: Chest pain Qualifiers: Chest pain type: other chest pain Qualified Code(s): R07.89 - Other chest pain Condition: Good Instructions: ED Chest Pain O Yessi Comments: We have completed labs as well as an ECG and chest X-ray and I am not seeing any severe abnormalities at this time. Please follow up with your PCP for ongoing evaluation of these heart palpitations. Please come back to the ER if you are having any new or worsening chest pain. Forms: PCP List Discharge Date/Time: 05/02/23 15:13
[2023-05-02 14:10] LABS: BASOPHILS % (AUTO) 0.5 %; EOSINOPHILS # (AUTO) 0.1 10^3/uL (0.0-0.7); EOSINOPHILS % (AUTO) 1.9 %; HGB - HEMOGLOBIN 13.2 g/dL (12.0-16.0); LYMPHOCYTES # (AUTO) 1.7 10^3/uL (1.5-3.5); LYMPHOCYTES % (AUTO) 27.1 %; MEAN CORPUSCULAR HEMOGLOBIN 29.5 pg (27.0-31.0); MEAN CORPUSCULAR HGB CONC 32.2 g/dL (32.0-36.0); MEAN CORPUSCULAR VOLUME 91.5 fL (81.0-99.0); MEAN PLATELET VOLUME 9.8 fL (7.9-10.8); MONOCYTES # (AUTO) 0.5 10^3/uL (0.0-1.0); MONOCYTES % (AUTO) 7.4 %; NEUTROPHILS # (AUTO) 3.9 10^3/uL (1.5-6.6); NEUTROPHILS % (AUTO) 62.9 %; PLT - PLATELET COUNT 257 10^3/uL (130-450); RED BLOOD COUNT 4.48 10^6/uL (4.20-5.40); RED CELL DISTRIBUTION WIDTH 12.3 % (12.0-15.0); WHITE BLOOD COUNT 6.2 x10^3/uL (4.8-10.8)
[2023-05-02 14:24] LABS: ALBUMIN 4.2 g/dL (3.2-5.5); ALBUMIN/GLOBULIN RATIO 1.4 (1.0-2.2); BILIRUBIN,TOTAL 0.3 mg/dL (0.2-1.0); CALCIUM 9.9 mg/dL (8.5-10.3); CREATININE 0.7 mg/dL (0.6-1.3); POTASSIUM 3.6 mmol/L (3.5-4.5); TOTAL PROTEIN 7.1 g/dL (6.4-8.9)
[2023-05-02 14:30] LABS: TROPONIN I HIGH SENSITIVITY 2.8 ng/L (2.3-14.8)
[2023-05-02 15:18] VITALS: BP 124/80; O2SAT 98
== END 2023-05-02 15:13 | disposition home or self-care (01) ==
LOC: ED 13:09
DX: R07.89 Other chest pain (principal)
CPT/HCPCS: 36415; 80053; 83690; 84484; 85025; 93005; 99283; 99284

== ENCOUNTER 2023-08-22 09:42 | Emergency (ER) | payer MEDICARE, OTHER ==
[2023-08-22 10:35] LABS: BASOPHILS % (AUTO) 0.5 %; HCT - HEMATOCRIT 36.9 % (37.0-47.0); HGB - HEMOGLOBIN 12.2 g/dL (12.0-16.0); LYMPHOCYTES # (AUTO) 0.6 10^3/uL (1.5-3.5); LYMPHOCYTES % (AUTO) 10.4 %; MEAN CORPUSCULAR HGB CONC 33.1 g/dL (32.0-36.0); MEAN CORPUSCULAR VOLUME 90.9 fL (81.0-99.0); MEAN PLATELET VOLUME 9.3 fL (7.9-10.8); MONOCYTES # (AUTO) 0.6 10^3/uL (0.0-1.0); NEUTROPHILS # (AUTO) 4.9 10^3/uL (1.5-6.6); NEUTROPHILS % (AUTO) 79.9 %; PLT - PLATELET COUNT 205 10^3/uL (130-450); RED BLOOD COUNT 4.06 10^6/uL (4.20-5.40); RED CELL DISTRIBUTION WIDTH 12.5 % (12.0-15.0); WHITE BLOOD COUNT 6.1 x10^3/uL (4.8-10.8)
[2023-08-22 10:44] LABS: MAGNESIUM 1.7 mg/dL (1.7-2.3)
[2023-08-22 10:50] LABS: ALBUMIN/GLOBULIN RATIO 1.5 (1.0-2.2); BILIRUBIN,TOTAL 0.5 mg/dL (0.2-1.0); CALCIUM 9.2 mg/dL (8.5-10.3); CREATININE 0.7 mg/dL (0.6-1.3); POTASSIUM 3.6 mmol/L (3.5-4.5); TOTAL PROTEIN 6.6 g/dL (6.4-8.9)
--- NOTE | 2023-08-22 10:59 | ED Physician Documentation ---
PD HPI SYNCOPE - Stated complaint Stated Complaint: PASSED OUT/CHILLS - Chief complaint Chief Complaint: Neuro - History obtained from History obtained from: Patient - History of Present Illness Witnessed: Witnessed (by spouse) Timing - onset: Today Duration: Minutes (she felt chilled and achy, with nausea and weakness last night into this morning after getting COVID vaccine yesterday afternoon. Has had similar symptoms with prior vaccine. Was standing brushing teeth, got lightheaded and fainted, striking head as she fell. nearby and went to her.) Preceding symptoms: Light headed, Generalized weakness. No: Headache, Chest pain, Palpitations Associated symptoms: Headache Contributing factors: Noxious stimulae (had covid vaccine yesterday with onset of myalgias, nausea, chills and weakness last evening/this morning.). No: Recent med change, Decreased PO intake Injury occurred: Head injury ( says pt awoke reasonably soon after falling but was dazzed and poorly vebal for several minutes.) Review of Systems Constitutional: reports: Fever, Chills, Myalgias, Fatigue GI: reports: Nausea Neurologic: reports: Generalized weakness PD PAST MEDICAL HISTORY - Past Medical History Cardiovascular: Hypertension Respiratory: Asthma Endocrine/Autoimmune: None GI: None : None HEENT: None Psych: None Musculoskeletal: None Derm: Rosacea - Past Surgical History Past Surgical History: Yes General: Colonoscopy - Present Medications Home Medications: Ambulatory Orders Medication Instructions Recorded Confirmed Aspirin [Adult Low Dose Aspirin EC] 81 mg PO DAILY 07/05/15 08/22/23 Calcium Carbonate/Vitamin D3 1 each PO DAILY 07/05/15 08/22/23 [Calcium 600 + Vit D3 800 Tab] Doxycycline Hyclate 50 mg PO DAILY 07/05/15 08/22/23 Multivit with Calcium,Iron,Min 1 cap PO DAILY 07/05/15 08/22/23 [Multiple Vitamins For Women] hydroCHLOROthiazide 12.5 mg PO DAILY 07/05/15 08/22/23 [Hydrochlorothiazide] lisinopriL [Lisinopril] 10 mg PO DAILY 07/05/15 08/22/23 Albuterol Sulf [Ventolin Hfa] 200 puffs INH PRN PRN 08/22/23 08/22/23 Alendronate [Fosamax] 70 mg PO DAILY 08/22/23 08/22/23 - Allergies Allergies/Adverse Reactions: Allergies Allergy/AdvReac Type Severity Reaction Status Date / Time Sulfa (Sulfonamide Allergy Rash Verified 08/22/23 10:09 Antibiotics) - Social History Does the pt smoke?: No Smoking Status: Never smoker Does the pt drink ETOH?: Yes ETOH Use: Wine Does the pt have substance abuse?: No - Immunizations Immunizations are current?: Yes PD ED PE NORMAL - Vitals Vital signs reviewed: Yes - General General: Alert and oriented X 3, No acute distress, Well developed/nourished - HEENT HEENT: Other (tender welling right parietal area of scalp. ) - Neck Neck: Supple, no meningeal sign, No adenopathy - Cardiac Cardiac: RRR, No murmur - Respiratory Respiratory: Clear bilaterally - Abdomen Abdomen: Soft, Non tender - Neuro Neuro: Alert and oriented X 3, instrumentation technician 2-12 intact, No motor deficit, No sensory deficit, Normal speech Results - Vitals Vitals: Oxygen O2 Source Room air - Labs Labs: Laboratory Tests 08/22/23 08/22/23 08/22/23 10:11 10:28 10:28 WBC 6.1 RBC 4.06 L Hgb 12.2 Hct 36.9 L MCV 90.9 MCH 30.0 MCHC 33.1 RDW 12.5 Plt Count 205 MPV 9.3 Neut # (Auto) 4.9 Lymph # (Auto) 0.6 [place] # (Auto) 0.6 Eos # (Auto) 0.0 Baso # (Auto) 0.0 Absolute Nucleated RBC 0.00 Nucleated RBC % 0.0 Sodium 137 Potassium 3.6 Chloride 103 Carbon Dioxide 27 Anion Gap 7.0 BUN 19 Creatinine 0.7 Estimated GFR (MDRD) 82 L Glucose 121 H POC Whole Bld Glucose 130 H Calcium 9.2 Magnesium 1.7 Total Bilirubin 0.5 AST 16 ALT 13 Alkaline Phosphatase 58 Total Protein 6.6 Albumin 4.0 Globulin 2.6 Albumin/Globulin Ratio 1.5 Lipase 15 - Rads (name of study) head CT Relevant Findings:: Prelim report reviewed, EMP independent interpretation of test (no ICH nor acute process) PD Medical Decision Making - ED course Complexity details: reviewed results (normal CBC and chemistry panel. Vital signs are okay except initially mild tachcycardia. That improved with fluids and meds. ), re-evaluated patient (a bit perkier with IV fludis, Toradol and Zofran. still thinks she is a bit sluggish answering questions. They are comfortable heading home. I expect improved from vaccine response as well as concussive effect in couple days. ), considered differential (sounds most likely immune response to the vaccine yesterday and then transient drop BP leading to syncope. However, her symptoms also sound like concussive effect with longer duration of confusion and altered than expect from syncope alone, and continued RIOS. Obtained CT head to eval for ICH - neg. ), d/w patient Departure - Departure Disposition: Home, Self Care Clinical Impression: Syncope, Scalp contusion, Mild concussion, Vaccines and biological substances adverse effect in therapeutic use Condition: Stable Record reviewed to determine appropriate education?: Yes Instructions: ED Concussion, ED Fainting Unkn Cause Follow-Up: Kenney Travis MD [Primary Care Provider] - Comments: It does sound likely that your symptoms leading to the fainting episode were janell e effects of the vaccination you got yesterday. Stay well-hydrated and rest comfortably today. Those symptoms of lightheaded and chills and such should dissipate in a day or so. It does also sound like you have a mild concussion from the fall and hitting your head with the headache and sluggish answering questions etc. You will likely feel little off balance as well. Commonly the mild concussion symptoms will dissipate in 2 to 3 days. Follow-up with your primary care if lasting longer than that. Tylenol every 4-6 hours if needed for headache. We did do a CT of your head and there is no signs of bleeding or swelling or fracture in the cranium. Evident was the swelling in the scalp area from the impact. We did blood tests as well looking at electrolytes, blood counts and kidney fun ction. These were okay. Your EKG appeared normal and your heart rhythm and blood pressure adequate here. Follow-up with your primary if not improved well over the next several days. Forms: PCP List Discharge Date/Time: 08/22/23 12:58
[2023-08-22] MEDS: SODIUM CHLORIDE 0.9% 500 ML IV STA (11:25)
[2023-08-22] MEDS: ACETAMINOPHEN 325 MG TABLET PO STA (11:25)
[2023-08-22] MEDS: KETOROLAC 15 MG/ML VIAL IVP STA (11:26)
--- NOTE | 2023-08-22 12:11 | CT Report ---
PROCEDURE: Head WO INDICATIONS: syncope/fall with head impact, concussive sxs. TECHNIQUE: Noncontrast 4.5 mm thick angled axial sections acquired from the foramen magnum to the vertex. For r adiation dose reduction, the following was used: automated exposure control, adjustment of mA and/or kV according to patient size. COMPARISON: None. FINDINGS: Image quality: Excellent. CSF spaces: Basal cisterns are patent. No extra-axial fluid collections. Ventricles are normal in size and shape. Brain: No midline shift. No intracranial masses or hemorrhage. De La Paz-white matter interface is norm al. Skull and face: Right temporoparietal scalp hematoma. Calvarium and visualized facial bones are inta ct, without suspicious lesions. Sinuses: Visualized sinuses and mastoids are clear. IMPRESSION: Right temporoparietal scalp hematoma. No skull fracture. No acute intracranial abnormality. Reviewed by: Hany Fine MD on 08/22/2023 12:10 PM PDT Approved by: Hany Fine MD on 08/22/2023 12:10 PM PDT Station ID: [id number]
[2023-08-22 13:04] VITALS: BP 122/65; O2SAT 95
== END 2023-08-22 12:58 | disposition home or self-care (01) ==
LOC: ED 09:42
DX: R55 Syncope and collapse (principal); S00.03XA Contusion of scalp, initial encounter; S06.0X0A Concussion without loss of consciousness, initial encounter; T50.B95A Adverse effect of other viral vaccines, initial encounter; W22.8XXA Striking against or struck by other objects, initial encounter; Y93.E8 Activity, other personal hygiene; Y92.002 Bathroom of unspecified non-institutional (private) residence as the place of occurrence of the external cause
CPT/HCPCS: 36415; 70450; 80053; 83690; 83735; 85025; 93005; 96361; 96374; 99284; A9270; 84484

== ENCOUNTER 2023-12-19 14:40 | Outpatient (CLI) | payer MEDICARE, OTHER ==
--- NOTE | 2023-12-22 08:10 | Mammography Report ---
BILATERAL DIGITAL SCREENING MAMMOGRAM 3D/2D: 12/19/2023 CLINICAL: Routine screening. Comparison is made to exams dated: 03/25/2023 mammogram, 09/18/2022 mammogram, 08/15/2022 mammogram, 11/16 mammogram, 03/10/2019 mammogram, and 01/20/2017 mammogram - [facility]. There are scattered areas of fibroglandular density in both breasts (category b / 25%-50% glandular t issue). There is a benign cyst in the left breast. No significant masses, calcifications, or other findings are seen in either breast. There has been no significant interval change. IMPRESSION: BENIGN There is no mammographic evidence of malignancy. A 1 year screening mammogram is recommended. Based on the Tyrer Cuzick model (a risk assessment model) the patient's lifetime risk is 6.7% and her 10 year risk is 6.1%. According to the ACR, ACS, and NCCN guidelines, an annual breast MRI exam brandyn g with mammogram is recommended if the patient's lifetime risk is 20% or greater. This exam was interpreted at Station ID: [id number]. NOTE: For mammograms, a report in lay terms will be sent to the patient. Approximately 15% of breast malignancies will not be visualized mammographically. In the management of a palpable breast mass, a negative mammogram must not discourage biopsy of a clinically suspicious lesion. Electronically Signed By: Sachin luo/veronica:12/22/2023 07:11:25 letter sent: No_Letter ACR BI-RADS Category 2: Benign Finding(s) 3342F PARENCHYMAL PATTERN: (A) - The breast(s) demonstrate(s) scattered fibroglandular densities. BI-RADS CATEGORY: (2) - 2 RECOMMENDATION: (ANNUAL) - Recommend routine annual screening mammography. [id number] 1 year screening LATERALITY: (B)
== END 2023-12-19 14:41 | disposition home or self-care (01) ==
LOC: DI 14:40
DX: Z12.31 Encounter for screening mammogram for malignant neoplasm of breast (principal); R92.323 Mammographic fibroglandular density, bilateral breasts